=== PATIENT | male | born 1965 | race Caucasian/White ===

== ENCOUNTER 2017-06-26 13:34 | Emergency (ER) | payer OTHER ==
[2017-06-26 13:40] VITALS: BP 148/55; BMI 27.7
--- NOTE | 2017-06-26 14:39 | DR.GENAD ---
HPI - PCP Primary Care Physician: MARIA ELENA - Complaint/Symptoms Chief Complaint Doctors Comments: Patient was seen by his physicial yara in the week. He was given Rx for skin rash; patient states that the Rx cost $300 and he could not afford it. He has had the rash for several days. Chief Complaint:: "FLEA BITES ALL OVER." Self Treatment fo Chief Complaint: NONE - Source History Provided: Patient - Mode of Arrival Mode of Arrival: Ambulatory - Timing Onset of Chief Complaint: 06/25/17 PMH - PMH Past Medical History: No Past Medical History: Hypertension Past Surgical History: Yes Past Surgical History Comment: BACK SURGERY - Family History History of Family Medical Conditions: Yes Family Medical History: Hypertension - Social History Does patient currently use any type of tobacco product: Yes Have you used tobacco products in the last 12 months: Yes Type of Tobacco Use: Smokeless Does any household member use tobacco: No Alcohol Use: None Do you use any recreational Drugs:: No Lives With: Family Lives Where: Home - infectious screening In the last 2 months have you had wt loss of >10#?: NO Have you had fever, night sweats or hemotysis?: No Have you traveled outside the country in the last 6 months?: No ROS - Review of Systems Eyes: No Symptoms Reported ENTM: No Symptoms Reported Respiratoy: No Symptoms Reported Cardiovascular: No Symptoms Reported Gastrointestinal/Abdominal: No Symptoms Reported Genitourinary: No Symptoms Reported Neurological: No Symptoms Reported Musculoskeletal: No Symptoms Reported Integumentary: Lumps, Rash, Itching Hematologic/Lymphatic: No Symptoms Reported Endocrine: No Symptoms Reported Psychiatric: No Symptoms Reported All Other Systems: Reviewed and Negative PE - Vital Signs Vitals: Temperature 97.1 F Pulse Rate 65 Respiratory Rate 20 Blood Pressure 148/55 O2 Sat by Pulse Oximetry 98 - General General Appearance: Alert, In No Apparent Distress - Head Head Exam: Normal Inspection, Atraumatic - Eyes Eye exam: Normal Appearance - ENT ENT Exam: Normal Exam External Ear Exam: Normal External Inspection TM/Canal Exam: Bilateral Normal Nose Exam: Normal Nose Exam Mouth Exam: Normal Inspection Throat Exam: Normal Inspection - Neck Neck Exam: Normal Inspection - Chest Chest Inspection: Normal Inspection - Respiratory Respiratory Exam: Normal Lung Sounds Bilat Respiratory Exam: Bilateral Clear to Auscultation - Cardiovascular Cardiovascular Exam: Regular Rate - Abdominal Exam Abdominal Exam: Normal Inspection Abdominal Tenderness: RUQ, RLQ - Extremities Extremities Exam: Normal Inspection - Back Back Exam: Normal Inspection, Full ROM - Neurologic Neurological Exam: Alert, Oriented X3, CN II-XII Intact - Psychiatric Psychiatric Exam: Normal Affect - Skin Skin Exam: Warm, Rash (large plaques, papules generalized) - Diagnosis Discharge Problem: Dermatitis - Discharge Plan Condition: Good - Follow ups/Referrals Follow ups/Referrals: MARCIA ARREDONDO [Primary Care Provider] - 3 days - Instructions
== END 2017-06-26 14:50 | disposition home or self-care (01) ==
LOC: ER 14:01
DX: L30.8 Other specified dermatitis (principal)
CPT/HCPCS: 99281; 99282

== ENCOUNTER → 2018-03-06 | Outpatient (CLI) | payer OTHER ==
--- NOTE | 2018-03-06 14:42 | MRI ---
STUDY: MRI OF THE LUMBAR SPINE HISTORY: Unspecified thoracic and lumbosacral intervertebral disc disorder. Low back pain radiating to the right leg. Neck pain. Comparison: None. Technique: Multiplanar multi-sequence MRI of the lumbar spine was performed. Sagittal T1, sagittal T 2, and STIR images, axial T1, and axial T2 images were obtained. Findings: Sagittal images: Vertebral body heights and alignment are within normal limits. Marrow signal is heterogeneous. There is multilevel degenerative disc disease and degenerative endplate change. Most degenerative endplate change appears chronic. The conus medullaris is normal in appearance terminating at the level of L1/2. Axial images: T12 -- L1: There is bilateral facet arthropathy and ligamentum flavum infolding. The central canal an d neural foramina are adequate. L1 -- L2: There is bilateral facet arthropathy and ligamentum flavum infolding. The central canal and neural foramina are adequate. L2 -- L3: There is a broad-based disc bulge, bilateral facet arthropathy and ligamentum flavum infold ing. The central canal and neural foramina are adequate. L3 -- L4: There is a broad-based disc bulge, bilateral facet arthropathy and ligamentum flavum infold ing. The central canal is adequate. There is mild bilateral neural foraminal stenosis. L4 -- L5: There is a broad-based disc bulge, bilateral facet arthropathy and ligamentum flavum infold ing. This results in mild central canal stenosis. There is mild bilateral neural foraminal stenosis. L5 -- S1: There is a broad-based disc bulge, bilateral facet arthropathy and ligamentum flavum infold ing. The central canal is adequate. There is moderate right and severe left neural foraminal stenosis at this level. IMPRESSION: 1. Multilevel lumbar spondylosis as described above. 2. Mild spinal stenosis at L4/5. 3. Neural foraminal stenosis as described, most severe at L5/S1 on the left. Reported By:
--- NOTE | 2018-03-06 15:25 | MRI ---
STUDY: MRI OF THE CERVICAL SPINE HISTORY: Unspecified cervical disc disorder. Neck pain. Low back pain that radiates to right leg. Comparison: None. Technique: An MRI of the cervical spine including sagittal T1, T2, and T2 STIR, axial T1, and T2 FSE images was performed using standard departmental protocol. Findings: Sagittal images: The craniocervical junction is unremarkable. Vertebral body heights and alignment are within normal limits. There is mild multilevel degenerative disc disease and degenerative endplate change. There is Modic type 1 change in the opposing endplates at C5/6. There is no significant prevertebral soft tis damir swelling. The surrounding paraspinal soft tissues are unremarkable. There is no evidence of cor d compression. No intrinsic signal abnormalities are identified in the spinal cord itself. Axial images: C2 -- C3: Normal. C3 -- C4: There is a posterior disc osteophyte complex and bilateral uncovertebral osteophyte formati on. This results in mild central canal stenosis. The neural foramina are adequate. C4 -- C5: There is a posterior disc osteophyte complex and bilateral uncovertebral osteophyte formati on. This results in mild spinal stenosis. The neural foramina are adequate. C5 -- C6: There is posterior disc osteophyte complex and bilateral uncovertebral osteophyte formation . This results in [id number] central canal stenosis. There is mild bilateral neural foraminal s tenosis. C6 -- C7: There is a posterior disc osteophyte complex and bilateral uncovertebral osteophyte formati on. The central canal and neural foramina appear adequate. C7 -- T1: Normal. IMPRESSION: 1. Mild multilevel cervical spondylosis as described, probably most notable at C5/6 2. Mild to moderate spinal stenosis at C5/6. 3. Mild bilateral neural foraminal stenosis at C5/6. Reported By:
== END | disposition home or self-care (01) | DRG 552 ==
LOC: RAD 12:45
PROVIDERS: ATTEND Psychiatry & Neurology Neurology
DX: M50.90 Cervical disc disorder, unspecified, unspecified cervical region (principal); M51.9 Unspecified thoracic, thoracolumbar and lumbosacral intervertebral disc disorder; M47.892 Other spondylosis, cervical region; M48.02 Spinal stenosis, cervical region
CPT/HCPCS: 72141; 72148